=== PATIENT | female | born 1975 | race American Indian/Alaskan Native ===

== ENCOUNTER 2017-03-14 06:13 | Observation (INO) | payer OTHER ==
[2017-03-14] MEDS ORDERED: NACL 0.9% 1000 ML 1,000 ML IV ONE (06:29)
[2017-03-14] MEDS ORDERED: CARDIZEM IV ONE ×4 (06:31→07:44)
[2017-03-14] MEDS ORDERED: CARDIZEM/D5W 100MG/100ML 100 MG/100 ML BAG IV ONE ×2 (06:31→08:00)
[2017-03-14] MEDS ORDERED: NACL 0.9% 1000 ML 1,000 ML ONE (06:31)
--- NOTE | 2017-03-14 06:50 | Emergency Department Report ---
ED Palpitations HPI - General Stated Complaint: IRREGULAR HEART RATE Time Seen by Provider: 03/14/17 06:26 Source: patient Mode of arrival: Stretcher Limitations: No Limitations - History of Present Illness Initial Comments: 42-year-old female with a past medical history of paroxysmal atrial fibrillation , Lyme's disease, MVP, gastric tumors, and IBS Presents to the hospital with complains of palpitations and shortness of breath since 3:15 AM. Positive associated intermittent moderate left-sided sharp pain reported. Positive associated fatigue and weakness. For several weeks patient has battling a respiratory infection/pneumonia. She initially had a chest x-ray February 23 at urgent care showing unilateral pneumonia. Mar 08 she had an outpatient x-ray does show bilateral pneumonia. She also reports a recent x-ray showing atelectasis and cardiomegaly. Urgent care sent her to [facility] 3 days ago or further evaluation and to rule out a blood clot. Patient denies receiving CT angiogram or leg dopplers at that time. States the EKG and 3 rounds of blood work and discharge her home. Over the last several weeks patient has been on azithromycin, clindamycin, and Levaquin. She initially had a cough productive of bloody sputum and intermittent fevers which seem to be improving with treatment. On March 03 patient traveled to [place] for her father's . No posterior calf tenderness or edema. Patient has a previous history of A. fib approximately 2 years ago associated with an respiratory illness and received workup including Holter monitor. Denies being placed on blood thinners. 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 Patient is currently on Levaquin, Medrol Dosepak and cough medicine. She is taking any other of her medications 1 year. - Related Data Allergies Allergy/AdvReac Type Severity Reaction Status Date / Time aspirin Allergy Unknown Verified 03/14/17 06:42 Penicillins Allergy Unknown Verified 03/14/17 06:42 Sulfa (Sulfonamide Allergy Unknown Verified 03/14/17 06:42 Antibiotics) ED Review of Systems ROS: Stated complaint: IRREGULAR HEART RATE Other details as noted in HPI Comment: All other systems reviewed and negative Other: Constitutional: as per hpi Eyes: No eye pain visual changes ENT: No ear pain or throat pain Neck: Denies pain Respiratory: as per hpi Cardiovascular: Denies syncope GI: Denies abdominal pain, nausea, vomiting, diarrhea : Denies dysuria Musculoskeletal: Denies back pain Skin: Denies rash, lesions, erythema Neurologic: Denies headache, numbness, weakness Psychiatric: Denies suicidal ideation, hallucinations ED Past Medical Hx - Past Medical History Previous Medical History?: Yes Additional medical history: lyme dz. afib. gastric tumors. mvp - Surgical History Hx Cholecystectomy: Yes Additional Surgical History: bowel polyps removal ED Physical Exam - Other Other exam information: General: No limitations, mild distress Head exam: Atraumatic, normocephalic Eyes exam: Normal appearance ENT: Moist mucous membrane, normal oropharynx Neck exam: Normal inspection, full range of motion Respiratory exam: Tachypnea, no wheezes, rales, or crackles Cardiovascular: Palpitations irregular rhythm Abdomen: Soft, nondistended, and nontender, with normal bowel sounds, no rebound, or guarding Extremity: Full range of motion normal inspection no deformity,no calf tenderness or edema Back: Normal Inspection, full range of motion, no tenderness Neurologic: Alert, oriented x3, cranial nerves intact, no motor or sensory deficit Psychiatric: normal affect, normal mood Skin: Warm, dry, intact ED Course Vital Signs 03/14/17 03/14/17 03/14/17 06:24 06:30 06:44 Temperature Pulse Rate 145 H 148 H 146 H Respiratory 19 19 Rate Blood Pressure 117/78 129/71 Blood Pressure [Left] O2 Sat by Pulse 99 99 Oximetry 03/14/17 03/14/17 03/14/17 06:46 07:00 07:01 Temperature 98.8 F Pulse Rate 109 H 116 H 160 H Respiratory 25 H 21 22 Rate Blood Pressure 129/71 118/83 117/83 Blood Pressure [Left] O2 Sat by Pulse 98 99 Oximetry 03/14/17 03/14/17 03/14/17 07:13 07:16 07:21 Temperature Pulse Rate 113 H 87 Respiratory 22 26 H 16 Rate Blood Pressure 125/91 Blood Pressure 118/83 [Left] O2 Sat by Pulse 99 98 100 Oximetry 03/14/17 03/14/17 03/14/17 07:30 07:44 07:46 Temperature Pulse Rate 114 H 134 H 114 H Respiratory 25 H 23 Rate Blood Pressure 131/89 148/104 121/68 Blood Pressure [Left] O2 Sat by Pulse 99 98 Oximetry 03/14/17 08:17 Temperature Pulse Rate 85 Respiratory Rate Blood Pressure 118/67 Blood Pressure [Left] O2 Sat by Pulse Oximetry - Reevaluation(s) Reevaluation #1: 03/14/17 06:54 pt tx with cardiezm 20mg hr decreased from 160 to 100. drip pending - Consultations Consultation #1: 03/14/17 09:43 Case d/w Dr Cole, will consult ED Medical Decision Making - Lab Data Result diagrams: 03/14/17 06:37 03/14/17 06:37 Lab Results 03/14/17 03/14/17 03/14/17 Range/Units 06:37 06:37 06:37 WBC 9.9 (4.5-11.0) K/mm3 RBC 6.05 H (3.65-5.03) M/mm3 Hgb 13.7 (10.1-14.3) gm/dl Hct 43.6 H (30.3-42.9) % MCV 72 L (79-97) fl MCH 23 L (28-32) pg MCHC 31 (30-34) % RDW 16.6 H (13.2-15.2) % Plt Count 211 (140-440) K/mm3 Lymph % (Auto) 19.3 (13.4-35.0) % [place] % (Auto) 6.4 (0.0-7.3) % Eos % (Auto) 0.1 (0.0-4.3) % Baso % (Auto) 0.4 (0.0-1.8) % Lymph # 1.9 (1.2-5.4) K/mm3 [place] # 0.6 (0.0-0.8) K/mm3 Eos # 0.0 (0.0-0.4) K/mm3 Baso # 0.0 (0.0-0.1) K/mm3 Seg Neutrophils % 73.8 H (40.0-70.0) % Seg Neutrophils # 7.3 (1.8-7.7) K/mm3 PT (12.2-14.9) Sec. INR (0.87-1.13) APTT (24.2-36.6) Sec. D-Dimer (0-234) ng/mlDDU VBG pH (7.320-7.420) Sodium 141 (137-145) mmol/L Potassium 4.3 (3.6-5.0) mmol/L Chloride 105.1 (98-107) mmol/L Carbon Dioxide 21 L (22-30) mmol/L Anion Gap 19 mmol/L BUN 17 (7-17) mg/dL Creatinine 0.8 (0.7-1.2) mg/dL Estimated GFR > 60 ml/min BUN/Creatinine Ratio 21 % Glucose 123 H (65-100) mg/dL Lactic Acid 2.50 H* (0.7-2.0) mmol/L Calcium 9.2 (8.4-10.2) mg/dL Magnesium 2.10 (1.7-2.3) mg/dL Total Bilirubin 0.40 (0.1-1.2) mg/dL AST 12 (5-40) units/L ALT 15 (7-56) units/L Alkaline Phosphatase 49 (35-129) units/L Total Creatine Kinase 75 (30-135) units/L CK-MB (CK-2) 1.1 (0.0-4.0) ng/mL CK-MB (CK-2) Rel Index 1.4 (0-4) Troponin T < 0.010 (0.00-0.029) ng/mL Total Protein 7.6 (6.3-8.2) g/dL Albumin 4.0 (3.9-5) g/dL Albumin/Globulin Ratio 1.1 % TSH (0.270-4.200) mlU/mL Free T4 (0.76-1.46) ng/dL HCG, Qual (Negative) Urine Opiates Screen Urine Methadone Screen Ur Barbiturates Screen Ur Phencyclidine Scrn Ur Amphetamines Screen U Benzodiazepines Scrn Urine Cocaine Screen U Marijuana (THC) Screen Drugs of Abuse Note 03/14/17 03/14/17 03/14/17 Range/Units 06:37 06:37 06:37 WBC (4.5-11.0) K/mm3 RBC (3.65-5.03) M/mm3 Hgb (10.1-14.3) gm/dl Hct (30.3-42.9) % MCV (79-97) fl MCH (28-32) pg MCHC (30-34) % RDW (13.2-15.2) % Plt Count (140-440) K/mm3 Lymph % (Auto) (13.4-35.0) % [place] % (Auto) (0.0-7.3) % Eos % (Auto) (0.0-4.3) % Baso % (Auto) (0.0-1.8) % Lymph # (1.2-5.4) K/mm3 [place] # (0.0-0.8) K/mm3 Eos # (0.0-0.4) K/mm3 Baso # (0.0-0.1) K/mm3 Seg Neutrophils % (40.0-70.0) % Seg Neutrophils # (1.8-7.7) K/mm3 PT 12.1 L (12.2-14.9) Sec. INR 0.86 L (0.87-1.13) APTT 25.8 (24.2-36.6) Sec. D-Dimer 196.97 (0-234) ng/mlDDU VBG pH 7.412 (7.320-7.420) Sodium (137-145) mmol/L Potassium (3.6-5.0) mmol/L Chloride (98-107) mmol/L Carbon Dioxide (22-30) mmol/L Anion Gap mmol/L BUN (7-17) mg/dL Creatinine (0.7-1.2) mg/dL Estimated GFR ml/min BUN/Creatinine Ratio % Glucose (65-100) mg/dL Lactic Acid (0.7-2.0) mmol/L Calcium (8.4-10.2) mg/dL Magnesium (1.7-2.3) mg/dL Total Bilirubin (0.1-1.2) mg/dL AST (5-40) units/L ALT (7-56) units/L Alkaline Phosphatase (35-129) units/L Total Creatine Kinase (30-135) units/L CK-MB (CK-2) (0.0-4.0) ng/mL CK-MB (CK-2) Rel Index (0-4) Troponin T (0.00-0.029) ng/mL Total Protein (6.3-8.2) g/dL Albumin (3.9-5) g/dL Albumin/Globulin Ratio % TSH 1.290 (0.270-4.200) mlU/mL Free T4 0.88 (0.76-1.46) ng/dL HCG, Qual (Negative) Urine Opiates Screen Urine Methadone Screen Ur Barbiturates Screen Ur Phencyclidine Scrn Ur Amphetamines Screen U Benzodiazepines Scrn Urine Cocaine Screen U Marijuana (THC) Screen Drugs of Abuse Note 03/14/17 03/14/17 Range/Units 06:37 07:13 WBC (4.5-11.0) K/mm3 RBC (3.65-5.03) M/mm3 Hgb (10.1-14.3) gm/dl Hct (30.3-42.9) % MCV (79-97) fl MCH (28-32) pg MCHC (30-34) % RDW (13.2-15.2) % Plt Count (140-440) K/mm3 Lymph % (Auto) (13.4-35.0) % [place] % (Auto) (0.0-7.3) % Eos % (Auto) (0.0-4.3) % Baso % (Auto) (0.0-1.8) % Lymph # (1.2-5.4) K/mm3 [place] # (0.0-0.8) K/mm3 Eos # (0.0-0.4) K/mm3 Baso # (0.0-0.1) K/mm3 Seg Neutrophils % (40.0-70.0) % Seg Neutrophils # (1.8-7.7) K/mm3 PT (12.2-14.9) Sec. INR (0.87-1.13) APTT (24.2-36.6) Sec. D-Dimer (0-234) ng/mlDDU VBG pH (7.320-7.420) Sodium (137-145) mmol/L Potassium (3.6-5.0) mmol/L Chloride (98-107) mmol/L Carbon Dioxide (22-30) mmol/L Anion Gap mmol/L BUN (7-17) mg/dL Creatinine (0.7-1.2) mg/dL Estimated GFR ml/min BUN/Creatinine Ratio % Glucose (65-100) mg/dL Lactic Acid (0.7-2.0) mmol/L Calcium (8.4-10.2) mg/dL Magnesium (1.7-2.3) mg/dL Total Bilirubin (0.1-1.2) mg/dL AST (5-40) units/L ALT (7-56) units/L Alkaline Phosphatase (35-129) units/L Total Creatine Kinase (30-135) units/L CK-MB (CK-2) (0.0-4.0) ng/mL CK-MB (CK-2) Rel Index (0-4) Troponin T (0.00-0.029) ng/mL Total Protein (6.3-8.2) g/dL Albumin (3.9-5) g/dL Albumin/Globulin Ratio % TSH (0.270-4.200) mlU/mL Free T4 (0.76-1.46) ng/dL HCG, Qual Negative (Negative) Urine Opiates Screen Presumptive negative Urine Methadone Screen Presumptive negative Ur Barbiturates Screen Presumptive negative Ur Phencyclidine Scrn Presumptive negative Ur Amphetamines Screen Presumptive negative U Benzodiazepines Scrn Presumptive negative Urine Cocaine Screen Presumptive negative U Marijuana (THC) Screen Presumptive negative Drugs of Abuse Note Disclamer - EKG Data -: EKG Interpreted by Me (afib early r wave progression) EKG shows normal: ST-T waves (no stemi/ t inv) Rate: tachycardia (156) - EKG Data When compared to previous EKG there are: previous EKG unavailable - Radiology Data Radiology results: report reviewed (cxr: cmg, naf, read by radiologist) ct angio chest: No Pulmonary emboli. Mild bilateral lower lobe atelectasis posteriorly. - Medical Decision Making Patient will be admitted for A. fib RVR. Currently on [facility] heart/Dr. Cole consulted Hospitalist informed Patient status improves with heart rate without CT angiogram chest without acute findings please know incidental finding - Differential Diagnosis A. fib, sepsis, PE, thyroid disease Critical Care Time: No Critical care attestation.: If time is entered above; I have spent that time in minutes in the direct care of this critically ill patient, excluding procedure time. ED Disposition Clinical Impression: Atrial fibrillation with RVR, Mild basilar atelectasis of both lungs Disposition: OP ADMIT IP TO THIS HOSP Is pt being admited?: Yes Condition: Stable Time of Disposition: 10:32 (Dr Glynn/hosp)
[2017-03-14 06:58] LABS: Basophils % (Auto) 0.4 % (0.0-1.8); Eosinophils % (Auto) 0.1 % (0.0-4.3); Hematocrit 43.6 % (30.3-42.9); Hemoglobin 13.7 gm/dl (10.1-14.3); Lymphocytes # (Auto) 1.9 K/mm3 (1.2-5.4); Lymphocytes % (Auto) 19.3 % (13.4-35.0); Mean Corpuscular HGB Conc 31 % (30-34); Mean Corpuscular Hemoglobin 23 pg (28-32); Mean Corpuscular Volume 72 fl (79-97); Monocytes # (Auto) 0.6 K/mm3 (0.0-0.8); Monocytes % (Auto) 6.4 % (0.0-7.3); Platelet Count 211 K/mm3 (140-440); Red Blood Count 6.05 M/mm3 (3.65-5.03); Red Cell Distribution Width 16.6 % (13.2-15.2)
[2017-03-14 07:07] LABS: INR 0.86 (0.87-1.13)
[2017-03-14 07:08] LABS: Partial Thromboplastin Time 25.8 Sec. (24.2-36.6)
[2017-03-14 07:23] LABS: Free T4 (Free Thyroxine) 0.88 ng/dL (0.76-1.46)
[2017-03-14 07:29] LABS: Creatine Kinase MB 1.1 ng/mL (0.0-4.0)
--- NOTE | 2017-03-14 07:29 | XRay Report ---
FINAL REPORT EXAM: XR CHEST 1V AP HISTORY: Chest Pain TECHNIQUE: An AP view of the chest was submitted. FINDINGS: The heart is mildly enlarged. The lungs are not congested. There are no localized infiltrates or effusions. The bones and soft tissues do not show any acute changes. IMPRESSION: Cardiomegaly. No acute process in the chest.
[2017-03-14 07:31] LABS: Alanine Aminotransferase 15 units/L (7-56); BUN/Creatinine Ratio 21; Blood Urea Nitrogen 17 mg/dL (7-17); Calcium 9.2 mg/dL (8.4-10.2); Hemolysis Index 6
[2017-03-14 08:01] LABS: Amphetamine Screen,Urine PRESUMPTIVE NEGATIVE; Benzodiazepines Screen,Urine PRESUMPTIVE NEGATIVE; Cannabinoid Screen,Urine PRESUMPTIVE NEGATIVE; Cocaine Screen,Urine PRESUMPTIVE NEGATIVE; Methadone Screen,Urine PRESUMPTIVE NEGATIVE; Opiate Screen,Urine PRESUMPTIVE NEGATIVE
--- NOTE | 2017-03-14 10:23 | Cat Scan Report ---
CTA CHEST INDICATION: Cough, tachycardia, shortness of breath. Recent travel. COMPARISON: CXR from earlier today. FINDINGS: Chest CTA performed following intravenous administration of 100 cc of Omnipaque 350. Rotational MIP's also obtained. Top normal heart size. No effusions. No aortic aneurysm, dissection or suspicious pulmonary arterial filling defects. No size significant adenopathy. Normal airway. Unremarkable thyroid. Mild bilateral lower lobe atelectasis posteriorly. Images through included upper abdomen demonstrate cholecystectomy clips. Slight diffuse hypodense bilateral adrenal prominence/hyperplasia. Slight abdominal subcutaneous stranding. Mild upper to mid thoracic spine degenerative spurring. CONCLUSION: No CT evidence of pulmonary embolism with few other findings, as above. Thank you for the opportunity to participate in this patient's care.
--- NOTE | 2017-03-14 11:34 | History and Physical Report ---
History of Present Illness Date of examination: 03/14/17 Date of admission: 03/14/17 History of present illness: 42-year-old female with a past medical history of paroxysmal atrial fibrillation , Lyme's disease, MVP, gastric tumors, and IBS Presents to the hospital with complains of palpitations and shortness of breath since 3:15 AM. She also c/o associated intermittent moderate left-sided sharp pain with associated generalized fatigue and weakness. For last several weeks patient has been on azithromycin, clindamycin, and Levaquin for PNA/bronchitis. Patient has a previous history of A. fib approximately 2 years ago associated with an respiratory illness and received workup including Holter monitoring. Denies being placed on blood thinners. 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 Patient is currently on Levaquin, Medrol Dosepak and cough medicine. She is not taking any other of her medications 1 year. In the ER her HR was elevated > 150s and EKG showed atrial fib with RVR. She received cardizem IV and now she is NSR. She will be admitted for further evaluation and management. Past medical History: h/o PNA/bronchitis recently. Past surgical History: s/p tonsillectomy. cholecystectomy, foot surgery. Social History: Lives with family, denies any smoking, drinking and elicit drug abuse. Family History: Significant for brain tumor in mother. Also DM, HTN runs in her family. Review of System: Constitutional: no fever, no chills, no weight loss Ears, eyes, nose, mouth and throat: no nasal congestion, no nasal discharge, no sinus pressure, no vision change, no red eye. Neck: No neck pain or rigidity. Cardiovascular: + chest pain, no orthopnea, + palpitations, no leg swelling Respiratory: + shortness of breath, no cough, no congestion, no wheezing Gastrointestinal: no abdominal pain, no nausea, no vomiting Genitourinary : no dysuria, no hematuria Musculoskeletal: no joint swelling or muscle ache Integumentary: no rash, no pruritis Neurological: no parathesias, no numbness, no tingling Endocrine: no cold or heat intolerance, no polyuria or polydipsia Hematologic/Lymphatic: no easy bruising, no easy bleeding, no gland swelling Allergic/Immunologic: no urticaria, no angioedema. Medications and Allergies Allergies Allergy/AdvReac Type Severity Reaction Status Date / Time aspirin Allergy Unknown Verified 03/14/17 06:42 Penicillins Allergy Unknown Verified 03/14/17 06:42 Sulfa (Sulfonamide Allergy Unknown Verified 03/14/17 06:42 Antibiotics) Home Medications Medication Instructions Recorded Confirmed Last Taken Type Levofloxacin [Levaquin] 750 mg PO QDAY 03/14/17 03/14/17 Unknown History methylPREDNISolone [Medrol] 4 mg PO DAILY 03/14/17 03/14/17 Unknown History Active Meds: Active Medications Diltiazem HCl (Cardizem/D5w 100mg/100ml) 100 mg in 100 mls @ 5 mls/hr IV TITR ONE; 5 MG/HR PRN Reason: Protocol Stop: 03/15/17 03:59 Last Admin: 03/14/17 08:17 Dose: 5 mg/hr, 5 mls/hr Exam - Physical Exam Narrative exam: GENERAL: well-developed and obese AAF lying on bed appeared to be in no discomfort. HEENT: Normocephalic. Atraumatic. No conjunctival congestion or icterus. Patient has moist mucous membranes. NECK: Supple. Trachea midline. CHEST/LUNGS: Clear to auscultated bilaterally, breathing nonlabored. No wheezes crackles or rhonchi. HEART/CARDIOVASCULAR: Regular in rate and rhythm. S1 and S2 positive. ABDOMEN: Abdomen is soft, nontender. Patient has normal bowel sounds. SKIN: There is no rash. Warm and dry. NEURO: No focal motor deficit. Follows command. MUSCULOSKELETAL: No joint effusion or tenderness. EXTRIMITY: No edema, no cyanosis or clubbing. PSYCH: Cooperative. - Constitutional Vitals: Temp Pulse Resp BP Pulse Ox 98.8 F 116 H 27 H 118/79 99 03/14/17 07:01 03/14/17 10:30 03/14/17 10:30 03/14/17 10:30 03/14/17 10:30 Results - Labs CBC & Chem 7: 03/14/17 06:37 03/15/17 06:44 Labs: Abnormal lab results 03/14/17 03/14/17 03/14/17 Range/Units 06:37 06:37 06:37 RBC 6.05 H (3.65-5.03) M/mm3 Hct 43.6 H (30.3-42.9) % MCV 72 L (79-97) fl MCH 23 L (28-32) pg RDW 16.6 H (13.2-15.2) % Seg Neutrophils % 73.8 H (40.0-70.0) % PT (12.2-14.9) Sec. INR (0.87-1.13) Carbon Dioxide 21 L (22-30) mmol/L Glucose 123 H (65-100) mg/dL Lactic Acid 2.50 H* (0.7-2.0) mmol/L 03/14/17 Range/Units 06:37 RBC (3.65-5.03) M/mm3 Hct (30.3-42.9) % MCV (79-97) fl MCH (28-32) pg RDW (13.2-15.2) % Seg Neutrophils % (40.0-70.0) % PT 12.1 L (12.2-14.9) Sec. INR 0.86 L (0.87-1.13) Carbon Dioxide (22-30) mmol/L Glucose (65-100) mg/dL Lactic Acid (0.7-2.0) mmol/L - Imaging and Cardiology EKG: report reviewed (afib early r wave progression) Chest x-ray: report reviewed (no infiltrates) CT scan - chest: report reviewed (no PE) Assessment and Plan Atrial fibrillation with RVR - will admit to telemetry bed - monitor with serial CE and EKG - will place on Aspirin, statin - as needed SL NTG and iv morphin for pain - Monitor BP, add Cardizem by mouth 60 MG every 6 hours - order 2D echo and cardiology consult - cardiac diet now, Chest pain - will follow cardiology recommendation - negative troponin, negative UDS Obesity - counselled when medically more stable h/o PNA - will cont home abx dose DVt Px - SCD
[2017-03-14] MEDS ORDERED: ZOFRAN IV PRN (11:37)
[2017-03-14] MEDS ORDERED: MILK OF MAGNESIA PO PRN (11:37)
[2017-03-14] MEDS ORDERED: DULCOLAX PR PRN (11:37)
[2017-03-14] MEDS ORDERED: TYLENOL PO PRN (11:37)
[2017-03-14] MEDS ORDERED: HALFPRIN EC PO ONE (11:39)
[2017-03-14] MEDS ORDERED: ECOTRIN PO ONE (11:39)
[2017-03-14] MEDS ORDERED: CARDIZEM PO SCH ×2 (12:00→14:05)
[2017-03-14 12:42] LABS: INR 0.92 (0.87-1.13)
[2017-03-14] MEDS: LOVENOX SUB-Q SCH ×2 (13:03→21:26)
[2017-03-14] MEDS: CARDIZEM PO SCH ×2 (15:35→21:26)
[2017-03-14] MEDS: MORPHINE IV PRN (17:29)
--- NOTE | 2017-03-14 19:46 | Consultation ---
History of Present Illness Consult date: 03/14/17 Consult reason: atrial fibrillation History of present illness: Patient's a 42-year-old woman who complained of symptoms of bronchitis about a week, which culminated in acute onset palpitations prompting her visit to the emergency room. He was found with atrial fibrillation. With medical therapy including diltiazem, she has reverted to a stable sinus rhythm. There is no chest pain, no syncope, no edema and no unusual shortness of breath. The serial EKGs and negative for acute ischemic changes. Cardiac isoenzymes are normal. Workup here includes a normal TSH level measured in the emergency room. Medications and Allergies Allergies Allergy/AdvReac Type Severity Reaction Status Date / Time aspirin Allergy Unknown Verified 03/14/17 06:42 Penicillins Allergy Unknown Verified 03/14/17 06:42 Sulfa (Sulfonamide Allergy Unknown Verified 03/14/17 06:42 Antibiotics) Home Medications Medication Instructions Recorded Confirmed Last Taken Type Levofloxacin [Levaquin] 750 mg PO QDAY 03/14/17 03/14/17 Unknown History methylPREDNISolone [Medrol] 4 mg PO DAILY 03/14/17 03/14/17 Unknown History Active Meds: Active Medications Acetaminophen (Tylenol) 650 mg PO Q4H PRN PRN Reason: Pain MILD(1-3)/Fever >100.5/[place] Atorvastatin Calcium (Lipitor) 40 mg PO QHS KARON Bisacodyl (Dulcolax) 10 mg MN QDAY PRN PRN Reason: Constipation unrelieved by MOM Diltiazem HCl (Cardizem) 30 mg PO Q6HR [facility] Last Admin: 03/14/17 15:35 Dose: Not Given Docusate Sodium (Colace) 100 mg PO BID KARON Enoxaparin Sodium (Lovenox) 110 mg 1 mg/kg (110 mg) SUB-Q Q12HR [facility] Last Admin: 03/14/17 13:03 Dose: 110 mg Famotidine (Pepcid) 20 mg PO BID KARON Diltiazem HCl (Cardizem/D5w 100mg/100ml) 100 mg in 100 mls @ 5 mls/hr IV TITR ONE; 5 MG/HR PRN Reason: Protocol Stop: 03/15/17 03:59 Last Titration: 03/14/17 12:08 Dose: 0 mg/hr, 0 mls/hr Sodium Chloride (Nacl 0.9% 1000 Ml) 1,000 mls @ 75 mls/hr IV DIRECT KARON Influenza Virus Vaccine Quadrival (Fluarix Quad [id number](36 Mos+) 0.5 ml IM .ONCE ONE Stop: 03/15/17 12:01 Magnesium Hydroxide (Milk Of Magnesia) 30 ml PO Q4H PRN PRN Reason: Constipation Morphine Sulfate (Morphine) 2 mg IV Q4H PRN PRN Reason: Pain , Severe (7-10) Last Admin: 03/14/17 17:29 Dose: 2 mg Ondansetron HCl (Zofran) 4 mg IV Q8H PRN PRN Reason: N/V unrelieved by Reglan Oxycodone/Acetaminophen (Percocet 5/325) 1 tab PO Q6H PRN PRN Reason: Pain, Moderate (4-6) Review of Systems Cardiovascular: palpitations, rapid/irregular heart beat, no chest pain, no orthopnea, no edema, no syncope, no lightheadedness, no shortness of breath Physical Examination Vital Signs Pulse Resp Pulse Ox 145 H 19 99 03/14/17 06:24 03/14/17 06:24 03/14/17 06:24 General appearance: no acute distress HEENT: Positive: PERRL Neck: Positive: neck supple Cardiac: Positive: Reg Rate and Rhythm Lungs: Positive: Decreased Breath Sounds Neuro: Positive: Grossly Intact Abdomen: Positive: Soft Female genitourinary: deferred Skin: Positive: Clear Extremities: Absent: edema Results 03/14/17 06:37 03/14/17 06:37 Cardiac Enzymes 03/14/17 Range/Units 06:37 AST 12 (5-40) units/L CK-MB (CK-2) 1.1 (0.0-4.0) ng/mL Coagulation 03/14/17 03/14/17 Range/Units 06:37 12:15 PT 12.1 L 12.8 (12.2-14.9) Sec. INR 0.86 L 0.92 (0.87-1.13) APTT 25.8 (24.2-36.6) Sec. CBC 03/14/17 Range/Units 06:37 WBC 9.9 (4.5-11.0) K/mm3 RBC 6.05 H (3.65-5.03) M/mm3 Hgb 13.7 (10.1-14.3) gm/dl Hct 43.6 H (30.3-42.9) % Plt Count 211 (140-440) K/mm3 Lymph # 1.9 (1.2-5.4) K/mm3 [place] # 0.6 (0.0-0.8) K/mm3 Eos # 0.0 (0.0-0.4) K/mm3 Baso # 0.0 (0.0-0.1) K/mm3 Comprehensive Metabolic Panel 03/14/17 Range/Units 06:37 Sodium 141 (137-145) mmol/L Potassium 4.3 (3.6-5.0) mmol/L Chloride 105.1 (98-107) mmol/L Carbon Dioxide 21 L (22-30) mmol/L BUN 17 (7-17) mg/dL Creatinine 0.8 (0.7-1.2) mg/dL Glucose 123 H (65-100) mg/dL Calcium 9.2 (8.4-10.2) mg/dL AST 12 (5-40) units/L ALT 15 (7-56) units/L Alkaline Phosphatase 49 (35-129) units/L Total Protein 7.6 (6.3-8.2) g/dL Albumin 4.0 (3.9-5) g/dL EKG interpretations - Telemetry EKG Rhythm: Atrial Fibrillation Assessment and Plan - Patient Problems (1) Atrial fibrillation with RVR Current Visit: Yes Status: Acute Plan to address problem: Patient presents with rapid atrial fibrillation, likely associated with an acute upper respiratory tract infection. We will continue Cardizem therapy, get an echocardiogram for left ventricular function assessment. If LV function is normal, we will treat with aspirin therapy without oral anticoagulation.
[2017-03-14] MEDS: PEPCID PO SCH (21:26)
[2017-03-14] MEDS: COLACE PO SCH (21:26)
[2017-03-14] MEDS: PERCOCET 5/325 PO PRN (21:28)
[2017-03-14] MEDS: NACL 0.9% 1000 ML 1,000 ML IV SCH (21:35)
[2017-03-15] MEDS: CARDIZEM PO SCH ×4 (02:44→21:24)
[2017-03-15] MEDS: PERCOCET 5/325 PO PRN ×2 (07:11→18:08)
[2017-03-15 07:12] LABS: BUN/Creatinine Ratio 26; Blood Urea Nitrogen 18 mg/dL (7-17); Hemolysis Index 10
--- NOTE | 2017-03-15 08:57 | Progress Note ---
Hospitalist Physical - Constitutional Vitals: Temp Pulse Resp BP Pulse Ox 98.3 F 87 18 123/86 100 03/15/17 04:52 03/15/17 04:52 03/15/17 04:52 03/15/17 04:52 03/15/17 04:52 General appearance: Present: no acute distress Results - Labs CBC & Chem 7: 03/14/17 06:37 03/15/17 06:44 Labs: Laboratory Last Values WBC 9.9 K/mm3 (4.5-11.0) 03/14/17 06:37 RBC 6.05 M/mm3 (3.65-5.03) H 03/14/17 06:37 Hgb 13.7 gm/dl (10.1-14.3) 03/14/17 06:37 Hct 43.6 % (30.3-42.9) H 03/14/17 06:37 MCV 72 fl (79-97) L 03/14/17 06:37 MCH 23 pg (28-32) L 03/14/17 06:37 MCHC 31 % (30-34) 03/14/17 06:37 RDW 16.6 % (13.2-15.2) H 03/14/17 06:37 Plt Count 211 K/mm3 (140-440) 03/14/17 06:37 Lymph % (Auto) 19.3 % (13.4-35.0) 03/14/17 06:37 [place] % (Auto) 6.4 % (0.0-7.3) 03/14/17 06:37 Eos % (Auto) 0.1 % (0.0-4.3) 03/14/17 06:37 Baso % (Auto) 0.4 % (0.0-1.8) 03/14/17 06:37 Lymph # 1.9 K/mm3 (1.2-5.4) 03/14/17 06:37 [place] # 0.6 K/mm3 (0.0-0.8) 03/14/17 06:37 Eos # 0.0 K/mm3 (0.0-0.4) 03/14/17 06:37 Baso # 0.0 K/mm3 (0.0-0.1) 03/14/17 06:37 Seg Neutrophils % 73.8 % (40.0-70.0) H 03/14/17 06:37 Seg Neutrophils # 7.3 K/mm3 (1.8-7.7) 03/14/17 06:37 PT 12.8 Sec. (12.2-14.9) 03/14/17 12:15 INR 0.92 (0.87-1.13) 03/14/17 12:15 APTT 25.8 Sec. (24.2-36.6) 03/14/17 06:37 D-Dimer 196.97 ng/mlDDU (0-234) 03/14/17 06:37 VBG pH 7.412 (7.320-7.420) 03/14/17 06:37 Sodium 138 mmol/L (137-145) 03/15/17 06:44 Potassium 3.6 mmol/L (3.6-5.0) 03/15/17 06:44 Chloride 104.9 mmol/L (98-107) 03/15/17 06:44 Carbon Dioxide 19 mmol/L (22-30) L 03/15/17 06:44 Anion Gap 18 mmol/L 03/15/17 06:44 BUN 18 mg/dL (7-17) H 03/15/17 06:44 Creatinine 0.7 mg/dL (0.7-1.2) 03/15/17 06:44 Estimated GFR > 60 ml/min 03/15/17 06:44 BUN/Creatinine Ratio 26 % 03/15/17 06:44 Glucose 76 mg/dL (65-100) 03/15/17 06:44 Lactic Acid 2.50 mmol/L (0.7-2.0) H* 03/14/17 06:37 Calcium 8.0 mg/dL (8.4-10.2) L 03/15/17 06:44 Magnesium 2.10 mg/dL (1.7-2.3) 03/14/17 06:37 Total Bilirubin 0.40 mg/dL (0.1-1.2) 03/14/17 06:37 AST 12 units/L (5-40) 03/14/17 06:37 ALT 15 units/L (7-56) 03/14/17 06:37 Alkaline Phosphatase 49 units/L (35-129) 03/14/17 06:37 Total Creatine Kinase 75 units/L (30-135) 03/14/17 06:37 CK-MB (CK-2) 1.1 ng/mL (0.0-4.0) 03/14/17 06:37 CK-MB (CK-2) Rel Index 1.4 (0-4) 03/14/17 06:37 Troponin T < 0.010 ng/mL (0.00-0.029) 03/14/17 12:15 Total Protein 7.6 g/dL (6.3-8.2) 03/14/17 06:37 Albumin 4.0 g/dL (3.9-5) 03/14/17 06:37 Albumin/Globulin Ratio 1.1 % 03/14/17 06:37 TSH 1.290 mlU/mL (0.270-4.200) 03/14/17 06:37 Free T4 0.88 ng/dL (0.76-1.46) 03/14/17 06:37 HCG, Qual Negative (Negative) 03/14/17 06:37 Urine Opiates Screen Presumptive negative 03/14/17 07:13 Urine Methadone Screen Presumptive negative 03/14/17 07:13 Ur Barbiturates Screen Presumptive negative 03/14/17 07:13 Ur Phencyclidine Scrn Presumptive negative 03/14/17 07:13 Ur Amphetamines Screen Presumptive negative 03/14/17 07:13 U Benzodiazepines Scrn Presumptive negative 03/14/17 07:13 Urine Cocaine Screen Presumptive negative 03/14/17 07:13 U Marijuana (THC) Screen Presumptive negative 03/14/17 07:13 Drugs of Abuse Note Disclamer 03/14/17 07:13
[2017-03-15] MEDS: COLACE PO SCH ×2 (11:15→21:13)
[2017-03-15] MEDS: PEPCID PO SCH ×2 (11:15→21:13)
[2017-03-15] MEDS: LOVENOX SUB-Q SCH (11:15)
[2017-03-15] MEDS ORDERED: Fluarix Quad 2017-2018(36 MOS+ IM ONE (12:00)
[2017-03-15] MEDS: NACL 0.9% 1000 ML 1,000 ML IV SCH (13:31)
--- NOTE | 2017-03-15 14:20 | Discharge Summary ---
<CYNTHIA WILLETT - Last Filed: 03/15/17 14:53> Providers - Providers Date of Admission: 03/14/17 11:35 Attending physician: ALICE REHMAN 03/14/17 09:43 Consult to Physician [CONS] Urgent Consulting Provider: ROBYN MANZO Reason For Exam: afib rvr Notified:: y Primary care physician: FLOWER PLANTER Hospitalization Condition: Stable Disposition: DC-09 OP ADMIT IP TO THIS [facility] Exam - Constitutional Vitals: Temp Pulse Resp BP Pulse Ox 98.3 F 82 16 142/88 100 03/15/17 12:34 03/15/17 12:34 03/15/17 12:34 03/15/17 12:34 03/15/17 12:34 Plan Follow up with: PRIMARY CARE, [Primary Care Provider] - 7 Days Prescriptions: Diltiazem Cd [Cardizem Cd] 60 mg PO DAILY 30 Days cap <ALICE REHMAN - Last Filed: 03/15/17 15:10> Providers - Providers Date of Admission: 03/14/17 11:35 Attending physician: ALICE REHMAN 03/14/17 09:43 Consult to Physician [CONS] Urgent Consulting Provider: ROBYN MANZO Reason For Exam: afib rvr Notified:: y Primary care physician: FLOWER PLANTER Exam - Constitutional Vitals: Temp Pulse Resp BP Pulse Ox 98.3 F 82 16 142/88 100 03/15/17 12:34 03/15/17 12:34 03/15/17 12:34 03/15/17 12:34 03/15/17 12:34
--- NOTE | 2017-03-15 15:29 | Progress Note ---
Assessment and Plan Atrial fibrillation, reverted to sinus rhythm likely associated with an acute upper respiratory tract infection. on cardizem for suppression Recommendations: Echocardiogram for left ventricular function assessment. If LV function is normal, we will treat with plavix therapy without oral anticoagulation as the patient has an aspirin allergy. Subjective Date of service: 03/15/17 Interval history: Patient has no cardiac complaints. She denies palpitations. Sinus rhythm on telemetry. Objective Vital Signs Temp Pulse Resp BP BP Pulse Ox 03/15/17 12:34 98.3 F 82 16 142/88 100 03/15/17 09:23 98.4 F 83 16 117/69 99 03/15/17 04:52 98.3 F 87 18 123/86 100 03/15/17 04:43 98.3 F 81 20 123/86 100 03/15/17 02:44 69 130/60 03/15/17 02:38 98.4 F 83 20 101/62 100 03/15/17 01:57 98.6 F 69 20 130/60 96 03/15/17 01:51 85 101/62 99 03/14/17 22:00 88 03/14/17 21:26 91 H 112/73 03/14/17 21:24 98.4 F 91 H 22 112/73 99 03/14/17 21:21 93 H 100 03/14/17 21:20 22 03/14/17 17:07 119/78 03/14/17 16:40 98.0 F 94 H 18 107/63 100 - Physical Examination General: No Apparent Distress HEENT: Positive: PERRL Cardiac: Positive: Reg Rate and Rhythm Lungs: Positive: Decreased Breath Sounds Neuro: Positive: Grossly Intact - Labs and Meds Comprehensive Metabolic Panel 03/15/17 Range/Units 06:44 Sodium 138 (137-145) mmol/L Potassium 3.6 (3.6-5.0) mmol/L Chloride 104.9 (98-107) mmol/L Carbon Dioxide 19 L (22-30) mmol/L BUN 18 H (7-17) mg/dL Creatinine 0.7 (0.7-1.2) mg/dL Glucose 76 (65-100) mg/dL Calcium 8.0 L (8.4-10.2) mg/dL - Imaging and Cardiology EKG: report reviewed (afib early r wave progression)
[2017-03-15] MEDS ORDERED: LEVAQUIN PO ONE (16:00)
[2017-03-15] MEDS: MORPHINE IV PRN (21:12)
[2017-03-15] MEDS: ELIQUIS PO SCH (21:13)
[2017-03-15] MEDS ORDERED: LOVENOX SUB-Q SCH (22:00)
[2017-03-16] MEDS: MORPHINE IV PRN ×2 (02:30→12:53)
[2017-03-16] MEDS: CARDIZEM PO SCH ×3 (02:33→14:00)
--- NOTE | 2017-03-16 08:21 | Progress Note ---
<CYNTHIA WILLETT - Last Filed: 03/16/17 09:39> Assessment and Plan Assessment and plan: Patient is a 42-year-old female with a past medical history of paroxysmal atrial fibrillation, Lyme's disease, MVP, gastric tumors, and IBS Presents to the hospital with complains of palpitations, shortness of breath and chest pain. Atrial fibrillation with RVR Patient reverted to sinus rhythm Continue on oral cardizem Echocardiogram revealed a mild to moderate left ventricular dysfunction, ejection fraction 40-45%. Chest pain EKG converted to normal sinus rate, no ST elevation or T-wave inversion. Negative cardiac enzyme X3 Nitroglycerin when necessary Morphine ordered for pain Stress test with Persantine thallium tomorrow Obesity Counseling done regarding darshana reduction Recurrent Pneumonia Continue IV Levaquin oxygen as necessary Pulmonary consult Lactic acidosis Resolved Dvt prophylaxis On Eliquis History Interval history: Patient complaint is dyspnea on exertion. Labs and Nursing notes reviewed. Hospitalist Physical - Constitutional Vitals: Temp Pulse Resp BP Pulse Ox 98.7 F 88 20 121/76 99 03/16/17 05:10 03/16/17 05:10 03/16/17 05:10 03/16/17 05:10 03/16/17 05:10 General appearance: Present: no acute distress - EENT Eyes: Present: PERRL - Neck Neck: Present: supple - Respiratory Respiratory effort: normal Respiratory: bilateral: diminished - Cardiovascular Rhythm: regular Heart Sounds: Present: S1 & S2 - Abdominal General gastrointestinal: soft, non-tender - Integumentary Integumentary: Present: clear, warm, dry - Psychiatric Psychiatric: appropriate mood/affect - Neurologic Neurologic: moves all extremities - Allied Health Allied health notes reviewed: nursing Results - Labs CBC & Chem 7: 03/14/17 06:37 03/15/17 06:44 Labs: Laboratory Last Values WBC 9.9 K/mm3 (4.5-11.0) 03/14/17 06:37 RBC 6.05 M/mm3 (3.65-5.03) H 03/14/17 06:37 Hgb 13.7 gm/dl (10.1-14.3) 03/14/17 06:37 Hct 43.6 % (30.3-42.9) H 03/14/17 06:37 MCV 72 fl (79-97) L 03/14/17 06:37 MCH 23 pg (28-32) L 03/14/17 06:37 MCHC 31 % (30-34) 03/14/17 06:37 RDW 16.6 % (13.2-15.2) H 03/14/17 06:37 Plt Count 211 K/mm3 (140-440) 03/14/17 06:37 Lymph % (Auto) 19.3 % (13.4-35.0) 03/14/17 06:37 [place] % (Auto) 6.4 % (0.0-7.3) 03/14/17 06:37 Eos % (Auto) 0.1 % (0.0-4.3) 03/14/17 06:37 Baso % (Auto) 0.4 % (0.0-1.8) 03/14/17 06:37 Lymph # 1.9 K/mm3 (1.2-5.4) 03/14/17 06:37 [place] # 0.6 K/mm3 (0.0-0.8) 03/14/17 06:37 Eos # 0.0 K/mm3 (0.0-0.4) 03/14/17 06:37 Baso # 0.0 K/mm3 (0.0-0.1) 03/14/17 06:37 Seg Neutrophils % 73.8 % (40.0-70.0) H 03/14/17 06:37 Seg Neutrophils # 7.3 K/mm3 (1.8-7.7) 03/14/17 06:37 PT 12.8 Sec. (12.2-14.9) 03/14/17 12:15 INR 0.92 (0.87-1.13) 03/14/17 12:15 APTT 25.8 Sec. (24.2-36.6) 03/14/17 06:37 D-Dimer 196.97 ng/mlDDU (0-234) 03/14/17 06:37 VBG pH 7.412 (7.320-7.420) 03/14/17 06:37 Sodium 138 mmol/L (137-145) 03/15/17 06:44 Potassium 3.6 mmol/L (3.6-5.0) 03/15/17 06:44 Chloride 104.9 mmol/L (98-107) 03/15/17 06:44 Carbon Dioxide 19 mmol/L (22-30) L 03/15/17 06:44 Anion Gap 18 mmol/L 03/15/17 06:44 BUN 18 mg/dL (7-17) H 03/15/17 06:44 Creatinine 0.7 mg/dL (0.7-1.2) 03/15/17 06:44 Estimated GFR > 60 ml/min 03/15/17 06:44 BUN/Creatinine Ratio 26 % 03/15/17 06:44 Glucose 76 mg/dL (65-100) 03/15/17 06:44 Lactic Acid 1.60 mmol/L (0.7-2.0) 03/15/17 13:40 Calcium 8.0 mg/dL (8.4-10.2) L 03/15/17 06:44 Magnesium 2.10 mg/dL (1.7-2.3) 03/14/17 06:37 Total Bilirubin 0.40 mg/dL (0.1-1.2) 03/14/17 06:37 AST 12 units/L (5-40) 03/14/17 06:37 ALT 15 units/L (7-56) 03/14/17 06:37 Alkaline Phosphatase 49 units/L (35-129) 03/14/17 06:37 Total Creatine Kinase 75 units/L (30-135) 03/14/17 06:37 CK-MB (CK-2) 1.1 ng/mL (0.0-4.0) 03/14/17 06:37 CK-MB (CK-2) Rel Index 1.4 (0-4) 03/14/17 06:37 Troponin T < 0.010 ng/mL (0.00-0.029) 03/14/17 12:15 Total Protein 7.6 g/dL (6.3-8.2) 03/14/17 06:37 Albumin 4.0 g/dL (3.9-5) 03/14/17 06:37 Albumin/Globulin Ratio 1.1 % 03/14/17 06:37 TSH 1.290 mlU/mL (0.270-4.200) 03/14/17 06:37 Free T4 0.88 ng/dL (0.76-1.46) 03/14/17 06:37 HCG, Qual Negative (Negative) 03/14/17 06:37 Urine Opiates Screen Presumptive negative 03/14/17 07:13 Urine Methadone Screen Presumptive negative 03/14/17 07:13 Ur Barbiturates Screen Presumptive negative 03/14/17 07:13 Ur Phencyclidine Scrn Presumptive negative 03/14/17 07:13 Ur Amphetamines Screen Presumptive negative 03/14/17 07:13 U Benzodiazepines Scrn Presumptive negative 03/14/17 07:13 Urine Cocaine Screen Presumptive negative 03/14/17 07:13 U Marijuana (THC) Screen Presumptive negative 03/14/17 07:13 Drugs of Abuse Note Disclamer 03/14/17 07:13 <ALICE REHMAN R - Last Filed: 03/16/17 14:01> Assessment and Plan Assessment and plan: I saw and evaluated the patient on 03/15/17. I agree with the findings and the plan of care as documented in the Nurse Practitioner's~note, with the following corrections and additions. atrial fib - will add eliquis h/o left breast lump - supposed to have mammogram outpt. requested to get the test done here. will order. Hospitalist Physical - Constitutional Vitals: Temp Pulse Resp BP Pulse Ox 99.3 F 108 H 20 141/90 98 03/16/17 12:51 03/16/17 12:55 03/16/17 12:51 03/16/17 12:55 03/16/17 12:51 Results - Labs CBC & Chem 7: 03/14/17 06:37 03/15/17 06:44 Labs: Laboratory Last Values WBC 9.9 K/mm3 (4.5-11.0) 03/14/17 06:37 RBC 6.05 M/mm3 (3.65-5.03) H 03/14/17 06:37 Hgb 13.7 gm/dl (10.1-14.3) 03/14/17 06:37 Hct 43.6 % (30.3-42.9) H 03/14/17 06:37 MCV 72 fl (79-97) L 03/14/17 06:37 MCH 23 pg (28-32) L 03/14/17 06:37 MCHC 31 % (30-34) 03/14/17 06:37 RDW 16.6 % (13.2-15.2) H 03/14/17 06:37 Plt Count 211 K/mm3 (140-440) 03/14/17 06:37 Lymph % (Auto) 19.3 % (13.4-35.0) 03/14/17 06:37 [place] % (Auto) 6.4 % (0.0-7.3) 03/14/17 06:37 Eos % (Auto) 0.1 % (0.0-4.3) 03/14/17 06:37 Baso % (Auto) 0.4 % (0.0-1.8) 03/14/17 06:37 Lymph # 1.9 K/mm3 (1.2-5.4) 03/14/17 06:37 [place] # 0.6 K/mm3 (0.0-0.8) 03/14/17 06:37 Eos # 0.0 K/mm3 (0.0-0.4) 03/14/17 06:37 Baso # 0.0 K/mm3 (0.0-0.1) 03/14/17 06:37 Seg Neutrophils % 73.8 % (40.0-70.0) H 03/14/17 06:37 Seg Neutrophils # 7.3 K/mm3 (1.8-7.7) 03/14/17 06:37 PT 12.8 Sec. (12.2-14.9) 03/14/17 12:15 INR 0.92 (0.87-1.13) 03/14/17 12:15 APTT 25.8 Sec. (24.2-36.6) 03/14/17 06:37 D-Dimer 196.97 ng/mlDDU (0-234) 03/14/17 06:37 VBG pH 7.412 (7.320-7.420) 03/14/17 06:37 Sodium 138 mmol/L (137-145) 03/15/17 06:44 Potassium 3.6 mmol/L (3.6-5.0) 03/15/17 06:44 Chloride 104.9 mmol/L (98-107) 03/15/17 06:44 Carbon Dioxide 19 mmol/L (22-30) L 03/15/17 06:44 Anion Gap 18 mmol/L 03/15/17 06:44 BUN 18 mg/dL (7-17) H 03/15/17 06:44 Creatinine 0.7 mg/dL (0.7-1.2) 03/15/17 06:44 Estimated GFR > 60 ml/min 03/15/17 06:44 BUN/Creatinine Ratio 26 % 03/15/17 06:44 Glucose 76 mg/dL (65-100) 03/15/17 06:44 Lactic Acid 1.60 mmol/L (0.7-2.0) 03/15/17 13:40 Calcium 8.0 mg/dL (8.4-10.2) L 03/15/17 06:44 Magnesium 2.10 mg/dL (1.7-2.3) 03/14/17 06:37 Total Bilirubin 0.40 mg/dL (0.1-1.2) 03/14/17 06:37 AST 12 units/L (5-40) 03/14/17 06:37 ALT 15 units/L (7-56) 03/14/17 06:37 Alkaline Phosphatase 49 units/L (35-129) 03/14/17 06:37 Total Creatine Kinase 75 units/L (30-135) 03/14/17 06:37 CK-MB (CK-2) 1.1 ng/mL (0.0-4.0) 03/14/17 06:37 CK-MB (CK-2) Rel Index 1.4 (0-4) 03/14/17 06:37 Troponin T < 0.010 ng/mL (0.00-0.029) 03/14/17 12:15 Total Protein 7.6 g/dL (6.3-8.2) 03/14/17 06:37 Albumin 4.0 g/dL (3.9-5) 03/14/17 06:37 Albumin/Globulin Ratio 1.1 % 03/14/17 06:37 TSH 1.290 mlU/mL (0.270-4.200) 03/14/17 06:37 Free T4 0.88 ng/dL (0.76-1.46) 03/14/17 06:37 HCG, Qual Negative (Negative) 03/14/17 06:37 Urine Opiates Screen Presumptive negative 03/14/17 07:13 Urine Methadone Screen Presumptive negative 03/14/17 07:13 Ur Barbiturates Screen Presumptive negative 03/14/17 07:13 Ur Phencyclidine Scrn Presumptive negative 03/14/17 07:13 Ur Amphetamines Screen Presumptive negative 03/14/17 07:13 U Benzodiazepines Scrn Presumptive negative 03/14/17 07:13 Urine Cocaine Screen Presumptive negative 03/14/17 07:13 U Marijuana (THC) Screen Presumptive negative 03/14/17 07:13 Drugs of Abuse Note Disclamer 03/14/17 07:13
[2017-03-16] MEDS ORDERED: LEXISCAN IV ONE ×2 (09:19→11:00)
--- NOTE | 2017-03-16 09:40 | Progress Note ---
Assessment and Plan Assessment and plan: Patient is a 42-year-old female with a past medical history of paroxysmal atrial fibrillation, Lyme's disease, MVP, gastric tumors, and IBS Presents to the hospital with complains of palpitations, shortness of breath and chest pain. Atrial fibrillation with RVR Patient reverted to sinus rhythm Continue on oral cardizem Echocardiogram revealed a mild to moderate left ventricular dysfunction, ejection fraction 40-45%. Chest pain EKG converted to normal sinus rate, no ST elevation or T-wave inversion. Negative cardiac enzyme X3 Nitroglycerin when necessary Morphine ordered for pain Stress test with Persantine thallium Obesity Counseling done regarding darshana reduction Recurrent Pneumonia Continue IV Levaquin oxygen as necessary Pulmonary consult Lactic acidosis Resolved Dvt prophylaxis On Eliquis History Interval history: Patient denies shortness of breath or chest pain.Labs and nursing notes reviewed. Hospitalist Physical - Constitutional Vitals: Temp Pulse Resp BP Pulse Ox 98.7 F 88 20 121/76 99 03/16/17 05:10 03/16/17 05:10 03/16/17 05:10 03/16/17 05:10 03/16/17 05:10 General appearance: Present: no acute distress - EENT Eyes: Present: PERRL ENT: hearing intact - Neck Neck: Present: supple - Respiratory Respiratory effort: normal Respiratory: bilateral: CTA - Cardiovascular Rhythm: regular Heart Sounds: Present: S1 & S2 - Abdominal General gastrointestinal: soft, non-tender - Integumentary Integumentary: Present: clear, warm, dry - Psychiatric Psychiatric: appropriate mood/affect - Neurologic Neurologic: moves all extremities - Allied Health Allied health notes reviewed: nursing Results - Labs CBC & Chem 7: 03/14/17 06:37 03/15/17 06:44 Labs: Laboratory Last Values WBC 9.9 K/mm3 (4.5-11.0) 03/14/17 06:37 RBC 6.05 M/mm3 (3.65-5.03) H 03/14/17 06:37 Hgb 13.7 gm/dl (10.1-14.3) 03/14/17 06:37 Hct 43.6 % (30.3-42.9) H 03/14/17 06:37 MCV 72 fl (79-97) L 03/14/17 06:37 MCH 23 pg (28-32) L 03/14/17 06:37 MCHC 31 % (30-34) 03/14/17 06:37 RDW 16.6 % (13.2-15.2) H 03/14/17 06:37 Plt Count 211 K/mm3 (140-440) 03/14/17 06:37 Lymph % (Auto) 19.3 % (13.4-35.0) 03/14/17 06:37 [place] % (Auto) 6.4 % (0.0-7.3) 03/14/17 06:37 Eos % (Auto) 0.1 % (0.0-4.3) 03/14/17 06:37 Baso % (Auto) 0.4 % (0.0-1.8) 03/14/17 06:37 Lymph # 1.9 K/mm3 (1.2-5.4) 03/14/17 06:37 [place] # 0.6 K/mm3 (0.0-0.8) 03/14/17 06:37 Eos # 0.0 K/mm3 (0.0-0.4) 03/14/17 06:37 Baso # 0.0 K/mm3 (0.0-0.1) 03/14/17 06:37 Seg Neutrophils % 73.8 % (40.0-70.0) H 03/14/17 06:37 Seg Neutrophils # 7.3 K/mm3 (1.8-7.7) 03/14/17 06:37 PT 12.8 Sec. (12.2-14.9) 03/14/17 12:15 INR 0.92 (0.87-1.13) 03/14/17 12:15 APTT 25.8 Sec. (24.2-36.6) 03/14/17 06:37 D-Dimer 196.97 ng/mlDDU (0-234) 03/14/17 06:37 VBG pH 7.412 (7.320-7.420) 03/14/17 06:37 Sodium 138 mmol/L (137-145) 03/15/17 06:44 Potassium 3.6 mmol/L (3.6-5.0) 03/15/17 06:44 Chloride 104.9 mmol/L (98-107) 03/15/17 06:44 Carbon Dioxide 19 mmol/L (22-30) L 03/15/17 06:44 Anion Gap 18 mmol/L 03/15/17 06:44 BUN 18 mg/dL (7-17) H 03/15/17 06:44 Creatinine 0.7 mg/dL (0.7-1.2) 03/15/17 06:44 Estimated GFR > 60 ml/min 03/15/17 06:44 BUN/Creatinine Ratio 26 % 03/15/17 06:44 Glucose 76 mg/dL (65-100) 03/15/17 06:44 Lactic Acid 1.60 mmol/L (0.7-2.0) 03/15/17 13:40 Calcium 8.0 mg/dL (8.4-10.2) L 03/15/17 06:44 Magnesium 2.10 mg/dL (1.7-2.3) 03/14/17 06:37 Total Bilirubin 0.40 mg/dL (0.1-1.2) 03/14/17 06:37 AST 12 units/L (5-40) 03/14/17 06:37 ALT 15 units/L (7-56) 03/14/17 06:37 Alkaline Phosphatase 49 units/L (35-129) 03/14/17 06:37 Total Creatine Kinase 75 units/L (30-135) 03/14/17 06:37 CK-MB (CK-2) 1.1 ng/mL (0.0-4.0) 03/14/17 06:37 CK-MB (CK-2) Rel Index 1.4 (0-4) 03/14/17 06:37 Troponin T < 0.010 ng/mL (0.00-0.029) 03/14/17 12:15 Total Protein 7.6 g/dL (6.3-8.2) 03/14/17 06:37 Albumin 4.0 g/dL (3.9-5) 03/14/17 06:37 Albumin/Globulin Ratio 1.1 % 03/14/17 06:37 TSH 1.290 mlU/mL (0.270-4.200) 03/14/17 06:37 Free T4 0.88 ng/dL (0.76-1.46) 03/14/17 06:37 HCG, Qual Negative (Negative) 03/14/17 06:37 Urine Opiates Screen Presumptive negative 03/14/17 07:13 Urine Methadone Screen Presumptive negative 03/14/17 07:13 Ur Barbiturates Screen Presumptive negative 03/14/17 07:13 Ur Phencyclidine Scrn Presumptive negative 03/14/17 07:13 Ur Amphetamines Screen Presumptive negative 03/14/17 07:13 U Benzodiazepines Scrn Presumptive negative 03/14/17 07:13 Urine Cocaine Screen Presumptive negative 03/14/17 07:13 U Marijuana (THC) Screen Presumptive negative 03/14/17 07:13 Drugs of Abuse Note Disclamer 03/14/17 07:13
[2017-03-16] MEDS ORDERED: LEVAQUIN PO SCH (10:00)
[2017-03-16] MEDS: ELIQUIS PO SCH (12:54)
[2017-03-16] MEDS: PEPCID PO SCH (12:54)
[2017-03-16] MEDS: COLACE PO SCH (12:54)
--- NOTE | 2017-03-16 15:33 | Discharge Summary ---
Providers - Providers Date of Admission: 03/14/17 11:35 Date of discharge: 03/16/17 Attending physician: ALICE REHMAN 03/14/17 09:43 Consult to Physician [CONS] Urgent Consulting Provider: ROBYN MANZO Reason For Exam: afib rvr Notified:: y 03/15/17 16:25 Consult to Physician [CONS] Routine Consulting Provider: JO ANN VICTORIA Reason For Exam: recurrent PNA Place consult to:: Dr Muniz Notified:: Yuli GARZA Phone number called:: Was contact made?: Yes If yes, spoke with:: [facility] service Time called:: 17:12 Primary care physician: [employer] ADMINISTRATOR Hospitalization Reason for admission: Atrial fibrillation with RVR Condition: Good Hospital course: Patient is a 42-year-old female with a past medical history of paroxysmal atrial fibrillation, Lyme's disease, MVP, gastric tumors, and IBS Presents to the hospital with complains of palpitations, shortness of breath and chest pain. Patient was diagnosed with Atrial fibrillation with RVR,Chest pain, Recurrent Pneumonia Lactic acidosis, and Obesity. Echocardiogram revealed a mild to moderate left ventricular dysfunction, ejection fraction 40-45% on2017. normal perfusion on MPI 03/2017. She received Cardizem drip and converted to sinus,rhythm normal she was restarted on the rest of her meds. She was treated with IV antibiotics for pneumonias. She is being discharged on oral antibiotic. Patient clinically improved. Patient advised to follow-up with his dermatology nurse practitioner and primary care provider within a week of discharge. Discharge Diagnosed Atrial fibrillation with RVR Chest pain Obesity Recurrent Pneumonia Lactic acidosis Disposition: -01 TO HOME OR SELFCARE Core Measure Documentation - Palliative Care Palliative Care/ Comfort Measures: Not Applicable - Core Measures Any of the following diagnoses?: none Exam - Constitutional Vitals: Temp Pulse Resp BP Pulse Ox 99.3 F 102 H 20 141/90 98 03/16/17 12:51 03/16/17 14:09 03/16/17 12:51 03/16/17 12:55 03/16/17 12:51 General appearance: Present: no acute distress - EENT Eyes: Present: PERRL ENT: hearing intact - Neck Neck: Present: supple - Respiratory Respiratory effort: normal Respiratory: bilateral: CTA - Cardiovascular Rhythm: regular Heart Sounds: Present: S1 & S2 - Abdominal General gastrointestinal: Present: soft, non-tender Female genitourinary: Present: deferred - Rectal Rectal Exam: deferred - Integumentary Integumentary: Present: clear, warm, dry - Musculoskeletal Musculoskeletal: strength equal bilaterally - Psychiatric Psychiatric: appropriate mood/affect - Neurologic Neurologic: moves all extremities - Allied Health Allied health notes reviewed: nursing Plan Diet: low fat, low cholesterol, low salt Follow up with: PRIMARY CARE, [Primary Care Provider] - 7 Days Prescriptions: Apixaban [Eliquis] 5 mg PO Q12HR #60 tablet Diltiazem Cd [Cardizem Cd] 60 mg PO DAILY 30 Days cap
--- NOTE | 2017-03-16 17:04 | Progress Note ---
Assessment and Plan Paroxysmal atrial fibrillation Normal MPI LVEF 40-45% by echo Recommendations: Continue current management Outpatient follow-up Avoid alcohol or heavy caffeine use Subjective Date of service: 03/16/17 Principal diagnosis: Afib Interval history: Patient has no complaints Tele is showing SR Objective Vital Signs Temp Pulse Resp BP BP BP Pulse Ox 03/16/17 14:09 102 H 03/16/17 12:55 108 H 141/90 03/16/17 12:51 99.3 F 104 H 20 141/90 98 03/16/17 10:16 106 H 125/78 03/16/17 10:15 109 H 125/77 03/16/17 10:14 109 H 129/85 03/16/17 10:13 115 H 130/86 03/16/17 10:12 124 H 135/81 03/16/17 10:11 115 H 127/81 03/16/17 09:27 87 141/93 03/16/17 05:10 98.7 F 88 20 121/76 99 03/16/17 02:33 117/93 03/16/17 00:24 98.3 F 83 20 94/58 98 03/15/17 21:24 20 138/88 03/15/17 21:11 98.5 F 83 20 138/88 100 03/15/17 21:07 77 100 03/15/17 21:06 98.5 F 83 20 131/88 98 03/15/17 17:18 98.7 F 87 18 128/83 100 - Physical Examination General: No Apparent Distress HEENT: Positive: PERRL Neck: Positive: neck supple Cardiac: Positive: Reg Rate and Rhythm Lungs: Positive: Normal Exam Neuro: Positive: Grossly Intact Abdomen: Positive: Soft Skin: Positive: Clear Extremities: Absent: edema - Imaging and Cardiology EKG: report reviewed (afib early r wave progression)
[2017-03-16 17:07] VITALS: BP 122/76
[2017-03-16] MEDS ORDERED: ELIQUIS PO SCH (22:00)
--- NOTE | 2017-03-17 07:28 | Treadmill Report ---
INDICATION FOR PROCEDURE: Atrial fibrillation. ORDERING PHYSICIAN: Dr. Whiteside. FINDINGS: There is no scintigraphic evidence of myocardial ischemia. The left ventricle is normal in size and systolic function, left ventricular ejection fraction is measured at 50%. Normal wall motion and wall thickening is noted on gated imaging. CONCLUSION: Normal perfusion scan. JOB# [id number] MARIYA/EVARISTO
== END 2017-03-16 18:34 | disposition home or self-care (01) ==
LOC: ED 06:13 → 4A 11:35
PROVIDERS: ADMIT Internal Medicine; ATTEND Internal Medicine
DX: I48.0 Paroxysmal atrial fibrillation (principal); E66.9 Obesity, unspecified; R06.02 Shortness of breath; A69.20 Lyme disease, unspecified; J18.9 Pneumonia, unspecified organism; E87.2 Acidosis; Z90.49 Acquired absence of other specified parts of digestive tract
CPT/HCPCS: 36415; 71045; 71275; 78452; 80048; 80053; 80307; 82140; 82550; 82553; 82805; 83735; 84439; 84443; 84484; 84703; 85025; 85379; 85610; 85730; 87040; 90471; 90686; 93005; 93010; 93017; 93306; 96361; 96365; 96366; 96372; 96375; 96376; 99285; A9270; A9502; G0378; J1650; J2270; J2405; J2785; J7030; Q9967

== ENCOUNTER → 2017-07-22 | Outpatient (CLI) | payer OTHER | LOC: SLR 11:00 | PROVIDERS: ATTEND Otolaryngology | DX: G47.30 Sleep apnea, unspecified (principal) | CPT/HCPCS: G0399 ==